=== PATIENT | male | born 1965 | race African-American/Black ===

== ENCOUNTER 2018-01-12 12:30 | Emergency (ER) | payer OTHER ==
[~2018-01-12] VITALS: Ht 193 cm; Wt 95.0 kg
[~2018-01-12 12:30] MED LIST: 1-ME1LIQ PO; ASPI81TA82 PO; ATOR20TA PO; HYDR50TA5 PO; METHI10 PO; METO25 PO; XOPEAER4 INH
[2018-01-12 12:57] VITALS: BP 135/89; PULSE 88; RESP 20; TEMP 98.4; O2SAT 100
[2018-01-12] MEDS ORDERED: BACT800T5 PO (13:08)
[2018-01-12] MEDS ORDERED: CEPH-460 PO (13:08)
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
== END 2018-01-12 13:25 | disposition home or self-care (01) ==
LOC: NEPK 12:30
DX: S81.811A Laceration without foreign body, right lower leg, initial encounter (principal); L03.115 Cellulitis of right lower limb; Z72.0 Tobacco use; Z79.82 Long term (current) use of aspirin; Z79.899 Other long term (current) drug therapy; W45.8XXA Other foreign body or object entering through skin, initial encounter
CPT/HCPCS: 99283